=== PATIENT | female | born 1995 | race Caucasian/White ===

== ENCOUNTER 2016-06-29 11:26 | Emergency (ER) | payer OTHER ==
[~2016-06-29] VITALS: Ht 160 cm; Wt 62.5 kg
[2016-06-29 11:36] VITALS: BP 110/79
[2016-06-29] MEDS ORDERED: KETOROLAC 30 MG/1 ML IM ONE (12:00)
[2016-06-29] MEDS ORDERED: ONDANSETRON ODT 4 MG PO ONE (12:00)
[2016-06-29] MEDS ORDERED: KETOROLAC 30 MG/1 ML ONE (12:52)
[2016-06-29] MEDS ORDERED: ONDANSETRON ODT 4 MG ONE (12:52)
== END 2016-06-29 13:16 | disposition home or self-care (01) ==
LOC: ED 13:10
DX: S16.1XXA Strain of muscle, fascia and tendon at neck level, initial encounter (principal); V89.2XXA Person injured in unspecified motor-vehicle accident, traffic, initial encounter; Y93.89 Activity, other specified; Y92.410 Unspecified street and highway as the place of occurrence of the external cause; Y99.9 Unspecified external cause status
CPT/HCPCS: 72020; 72050; 96372; 99284; J1885; Q0162